=== PATIENT | male | born 1935 | race Two or more races ===

== ENCOUNTER 2022-11-28 20:30 | Emergency (ER) | payer OTHER ==
[~2022-11-28] VITALS: Ht 157.5 cm; Wt 38.6 kg
[2022-11-28] MEDS ORDERED: MYSOLINE250 MG PO (20:31)
[2022-11-29] MEDS ORDERED: MUPIROCIN1 G1 TOP (03:22)
[2022-11-29] MEDS ORDERED: CEPHALEXIN500 MG PO (03:22)
== END 2022-11-29 03:40 ==
LOC: ER 20:30
DX: S00.01XA Abrasion of scalp, initial encounter (principal); W18.30XA Fall on same level, unspecified, initial encounter; Y93.9 Activity, unspecified; G20 Parkinson's disease; Y92.013 Bedroom of single-family (private) house as the place of occurrence of the external cause

== ENCOUNTER 2024-10-09 12:42 | Outpatient (CLI) | payer OTHER ==
[~2024-10-09 12:42] MED LIST: CEPHALEXIN500 MG PO; MUPIROCIN1 G1 TOP; MYSOLINE250 MG PO
== END 2024-10-09 12:48 | disposition home or self-care (01) ==
LOC: RAD 12:42
PROVIDERS: ATTEND Ophthalmology
DX: Z01.811 Encounter for preprocedural respiratory examination (principal)

== ENCOUNTER 2024-10-09 13:03 | Outpatient (CLI) | payer OTHER | END 2024-10-09 13:04 | disposition home or self-care (01) | LOC: EKG 13:03 | PROVIDERS: ATTEND Ophthalmology | DX: I10 Essential (primary) hypertension (principal) ==